=== PATIENT | female | born 1965 | race Caucasian/White ===

== ENCOUNTER 2023-08-07 10:39 | Outpatient (CLI) | payer BC | END 2023-08-07 10:40 | disposition home or self-care (01) | LOC: CSHULT 10:39 | PROVIDERS: ATTEND Family Medicine | DX: S40.022A Contusion of left upper arm, initial encounter (principal) ==

== ENCOUNTER 2023-08-12 08:25 | Outpatient (CLI) | payer BC | END 2023-08-12 08:26 | disposition home or self-care (01) | LOC: CSHMAMMO 08:25 | PROVIDERS: ATTEND Family Medicine | DX: Z12.31 Encounter for screening mammogram for malignant neoplasm of breast (principal) | CPT/HCPCS: 77063; 77067 ==